=== PATIENT | female | born 1970 | race Caucasian/White ===

== ENCOUNTER 2018-05-02 11:04 | Outpatient (REF) | payer MEDICAID, SELFPAY ==
[2018-05-05 14:37] LABS: Chlamydia Result Negative; GC Result Negative; Specimen Description CERVIX
== END 2018-05-02 11:24 ==
LOC: LBN 11:04
PROVIDERS: PCP Internal Medicine; Visit Provider Obstetrics & Gynecology Gynecology
DX: R10.2 Pelvic and perineal pain (principal); Z11.3 Encounter for screening for infections with a predominantly sexual mode of transmission
CPT/HCPCS: 87491; 87591

== ENCOUNTER 2018-05-29 14:09 | Outpatient (REF) | payer MEDICAID, SELFPAY ==
--- NOTE | 2018-05-29 13:40 | PAPFT_PTH ---
PATIENT: Any Madsen LOC: [facility] U#:[id number] AGE/SX: 47/F ROOM: RE05/29/[address]: Qian Lopez NP : 1970 BED: DIS: 05/29/2018 SPEC #: [id number] RECD: 05/29/18 18:12 STATUS: SUDEEP RODRIGUEZ #: [id number] JON: 05/29/18 13:[address]: Qian Lopez NP DEPT: [facility] Cytology RECD BY: Thania Chavira ENTERED: 05/29/18 18:12 SP TYPE: PAPFT OTHR DR: Moise Cabrales Tissues: 1 - CX/ENDOCX FOR PAP SMEARS Procedures: PAP THIN PREP/UVM Screening HPV DNA PROBE Comments: [id number]
== END 2018-05-29 14:29 ==
LOC: LBN 14:09
PROVIDERS: PCP Internal Medicine; Visit Provider Nurse Practitioner Women's Health
DX: Z12.4 Encounter for screening for malignant neoplasm of cervix (principal); Z11.51 Encounter for screening for human papillomavirus (HPV)
CPT/HCPCS: 88142; 87624

== ENCOUNTER 2021-02-01 00:17 | Outpatient (CLI) | payer MEDICAID, SELFPAY ==
--- NOTE | 2021-02-01 12:15 | DI.MAMMO_ITS ---
Exam(s) MAMMO SCREENING EXAM: MAMMO SCREENING CLINICAL HISTORY: screening. TECHNIQUE: Bilateral full field digital CC and MLO mammographic images were obtained with 3D tomosyn thesis and utilizing computer aided detection (CAD). COMPARISON: None. This is a baseline mammogram on this 50 patient FINDINGS: Fibroglandular tissue pattern is dense bilaterally this somewhat decreasing the sensitivity of the ma mmogram for finding hidden underlying lesions. There are no obvious spiculated masses. Numerous punctate microcalcifications sys are noted both joe asts. No obvious malignant-appearing microcalcification groups. There is no significant architectural distortion nor skin thickening-retraction. IMPRESSION: Dense bilateral fibroglandular tissue. No obvious radiographic evidence of malignancy. BI-RADS Category 2 - Benign Findings Breast Density - Category D - Extremely dense Breast density Category C or D implies that the patient has dense breast tissue. Dense breast tissue can make it harder to find cancer on a mammogram. Dense breast tissue is also associated with an incr eased risk of breast cancer. This information about the result of the mammogram report was provided to the patient to raise their awareness. Use this report when you speak with the patient about their risks for breast cancer, which includes their family history. At that time, you may recommend additional screening tests (Ultrasoun d or MRI) as these tests may add significant information. A negative radiographic report should not delay biopsy if a dominant or clinically suspicious mass is present. Up to ten percent of cancers are not identified on mammography. A negative report may reinforce clinical impression. Adenosis and dense breasts may obscure an underlying neoplasm. False positive reports average 6 to 10%. Patient will receive a letter notifying them of these results.
== END 2021-02-01 00:37 ==
PROVIDERS: PCP Internal Medicine; Visit Provider Obstetrics & Gynecology Gynecology
DX: Z12.31 Encounter for screening mammogram for malignant neoplasm of breast (principal); R92.8 Other abnormal and inconclusive findings on diagnostic imaging of breast
CPT/HCPCS: 77063; 77067

== ENCOUNTER 2023-06-18 11:15 | Outpatient (REF) | payer MEDICAID, SELFPAY ==
--- NOTE | 2023-06-18 10:45 | PAPFT_PTH ---
PATIENT: Any Madsen LOC: [facility] U#:[id number] AGE/SX: 52/F ROOM: RE06/18/[address]: Damaris Burger : 1970 BED: DIS: 06/18/2023 SPEC #: [id number] RECD: 06/18/23 12:54 STATUS: SUDEEP RERishi #: [id number] JON: 06/18/23 10:[address]: Damaris Burger DEPT: [facility] Cytology RECD BY: Thania Chavira ENTERED: 06/18/23 12:54 SP TYPE: PAPFT OTHR DR: Moise Cabrales Tissues: 1 - CX/ENDOCX FOR PAP SMEARS Procedures: PAP THIN PREP/UVM Screening HPV DNA PROBE Comments: [id number]
== END 2023-06-18 11:16 | disposition home or self-care (01) ==
LOC: LBN 11:15
PROVIDERS: PCP Internal Medicine; Visit Provider Obstetrics & Gynecology Gynecology
DX: Z01.419 Encounter for gynecological examination (general) (routine) without abnormal findings (principal); Z11.51 Encounter for screening for human papillomavirus (HPV)
CPT/HCPCS: 88142; 87624

== ENCOUNTER → 2023-06-25 02:57 | Outpatient (CLI) | payer MEDICAID, SELFPAY ==
--- NOTE | 2023-06-25 07:53 | DI.MAMMO_ITS ---
Exam(s) MAMMO SCREENING EXAM: MAMMO SCREENING CLINICAL HISTORY: screening TECHNIQUE: Bilateral full field digital CC and MLO mammographic images were obtained with 3D tomosyn thesis and utilizing computer aided detection (CAD). COMPARISON: Available for comparison. FINDINGS: Masses/Architectural Distortion: None seen. Microcalcifications: No suspicious pleomorphic-type are seen. Skin Thickening/Nipple Retraction: None. IMPRESSION: 1. No significant interval change with no specific features of malignancy noted. 2. Unless there is more urgent need, screening mammography is recommended, as per [employer] guidelines. BI-RADS Category 1 - Negative Breast Density - Category D - Extremely dense Breast density category C or D implies that the patient has dense breast tissue. Dense breast tissue is very common and is not abnormal but dense breast tissue can make it harder to find cancer on a ma mmogram. Also, dense breast tissue may increase their breast cancer risk. This information about the result of the mammogram report was provided to the patient to raise their awareness. Use this report when you speak with the patient about their risks for breast cancer, which includes their family hist ory. At that time, you may recommend for more screening tests (Ultrasound or MRI) as they might be us eful based on their risk. A negative radiographic report should not delay biopsy if a dominant or clinically suspicious mass is present. Up to ten percent of cancers are not identified on mammography. A negative report may reinforce clinical impression. Adenosis and dense breasts may obscure an underlying neoplasm. False positive reports average 6 to 10%. Patient will receive a letter notifying them of these results.
== END ==
PROVIDERS: PCP Internal Medicine; Visit Provider Obstetrics & Gynecology Gynecology
DX: Z12.31 Encounter for screening mammogram for malignant neoplasm of breast (principal)
CPT/HCPCS: 77063; 77067

== ENCOUNTER 2023-08-20 09:53 | Day surgery (SDC) | payer MEDICAID, SELFPAY ==
--- NOTE | 2023-08-20 06:38 | W.ANESPRE ---
General Info Date of Service Date Performed: 08/20/23 Height: 5 ft 4.5 in Weight: 54 kg Body Mass Index (BMI): 20.1 Surgical Procedure: Operation Date: 08/20/23 10:35 Proposed Procedure Side Surgeon p Colonoscopy/Gastroscopy and Hemorrhoid Banding Deven Aldana MD Meds Allergies and Home Medications Allergies Allergy/AdvReac Type Severity Reaction Status Date / Time No Known Allergies Allergy Unverified 08/20/23 10:32 Home Medication Medication Instructions Recorded ibuprofen 200 mg capsule 200 mg PO TID-QID PRN 05/02/18 levonorgestrel 21 mcg/24 hr (up to 1 device intrauterine ONCE 05/29/18 8 years) 52 mg intrauterine device (Mirena) bisacodyl 5 mg tablet,delayed 5 mg PO ONCE #4 tabs 08/08/23 release (Dulcolax (bisacodyl)) polyethylene glycol 3350 17 17 g PO ONCE #238 grams 08/08/23 gram/dose oral powder Current Visit Medications: Current Medications Generic Name Dose Route Start Last Admin Trade Name Jaunq PRN Reason Stop Dose Admin Ringer's Solution 1,000 mls @ 80 mls/hr 08/20/23 06:00 IV 09/18/23 23:59 INFUSION MELINDA IV Miscellaneous Supplies 1 each 08/20/23 06:00 Iv Access IV 09/18/23 23:59 DIRECTED MELINDA Sodium Chloride 0 ml 08/20/23 06:00 Normal Saline Flush 10 Ml Syr IV 09/18/23 23:59 PRN PRN Sodium Chloride 0 ml 08/20/23 06:00 Normal Saline 10 Ml Vial IJ 09/18/23 23:59 DIRECTED PRN Sterile Water 0 ml 08/20/23 06:00 Water,Injection,Sterile 10 Ml Vial IJ 09/18/23 23:59 DIRECTED PRN PFSH Active Problems Active Problems: Problem Status Onset Code Rectal bleeding K62.5 IUD (intrauterine device) in place 05/13/15 Z97.5 Cardiac arrhythmia, unspecified 05/13/15 I49.9 Menstrual irregularity 05/13/15 N92.6 Migraine without aura and without status migrainosus, not intractable 05/13/15 G43.009 Pelvic pain ~04/2018 R10.2 Medical History Medical History Cardiac arrhythmia onset 2014. s/p eval by PCP. not resolved. Migraine Tobacco Smoking/Tobacco Use Status: Never Alcohol Alcohol Intake: current Alcohol intake frequency: a few times a week Substance Use Substance use: Never Substance use type: does not use Prental History History 3 Para Hx # Term Pregnancies 3 Multiple births Hx # Pregnancies Ectopic pregnancies AB induced Hx Number of Living Children AB spontaneous Vital Signs and Lab Results Vital Signs Most Recent Vital Signs in EMR: Temp Pulse Resp BP Pulse Ox 37.1 C 81 16 119/86 98 08/20/23 10:38 08/20/23 10:38 08/20/23 10:38 08/20/23 10:38 08/20/23 10:38 Lab Results Blood Type / Crossmatch: No Data to Display Complete Blood Count: No Data to Display Complete Metabolic Panel: No Data to Display Liver Function Panel: No Data to Display Coagulation Panel: No Data to Display Cardiac Panel: No Data to Display Arterial Blood Gas: No Data to Display Venous Blood Gas: No Data to Display Pancreas Panel: No Data to Display Thyroid Panel: No Data to Display Infectious Disease: No Data to Display Blood Cultures: No Data to Display Toxicology Panel: No Data to Display Panel: No Data to Display Anesthesia Assessment and Plan Anesthesia History Personal History: No History of Anesthesia Complications Family History: No Family History of Anesthesia Complications Exercise Tolerance Exercise Tolerance: Metabolic Equivalents>4 Cardiac & Pulmonary Exam Cardiac Exam: Normal S1/S2 Heart Sounds Pulmonary Exam: Clear Bilateral Breath Sounds Implantable Cardiac Device Does patient have a Pacemaker or an ICD?: No Airway Exam Known Difficult Airway: No Mallampati Class: 3 Mouth Opening: Normal (> 3cm) Thyromental Distance: Greater than 3 cm Neck Range of Motion: Full ROM Neck Circumference: Normal Teeth Condition: Normal Dentition ASA Classification ASA Score: ASA 2 Emergency Case?: No NPO Status NPO Status: NPO Clears >2 hours, Solids >8 hours Status Status: Negative HCG Anesthesia Plan Resuscitation Status: Full Code Anesthesia Technique: General Anesthesia Airway Planned: Natural Airway Monitors Used: Standard Monitors Preoperative Comments:: 52 yo female for colo. Sig PMHx: arrhythmia (? Anxiety), migraine. never smoker, occ EtOH.
[2023-08-20 10:38] VITALS: BP 119/86; PULSE 81; RESP 16; TEMP 37.1; O2SAT 98
[2023-08-20] MEDS: Lactated Ringers 1,000 ML 80 ML IV (10:58)
[2023-08-20 11:37] VITALS: BMI 20.1
--- NOTE | 2023-08-20 11:52 | BOWEL_PTH ---
PATIENT: Any Madsen LOC: [facility] U#:[id number] AGE/SX: 52/F ROOM: RE08/20/[address]: Deven Aldana : 1970 BED: DIS: 08/20/2023 SPEC #: [id number] RECD: 08/20/23 18:01 STATUS: SUDEEP [facility] #: [id number] JON: 08/20/23 11:[address]: Deven Aldana DEPT: Surgical Specimen RECD BY: Thania Chavira ENTERED: 08/20/23 18:04 SP TYPE: Bowel OTHR DR: Moise Cabrales Tissues: 1 - BIOPSY BOWEL 2 - STOMACH BIOPSY 3 - STOMACH BIOPSY 4 - STOMACH BIOPSY 5 - BIOPSY BOWEL 6 - BIOPSY BOWEL Procedures: GROSS AND MICRO LEVEL 4 Comments: [id number]
--- NOTE | 2023-08-20 12:36 | W.PM.ENDDOP ---
Date of service: 08/20/23 Time of Service: 12:36 Endoscopy Report PROCEDURE DESCRIPTION: PROCEDURES PERFORMED: 1. EGD with biopsies 2. Cold forceps polypectomy PREOPERATIVE DIAGNOSIS: GI bleeding, diarrhea POSTOPERATIVE DIAGNOSIS: Normal foregut, incidental fundic polyps SURGEON: Alber Aldana MD INDICATION FOR PROCEDURE: 52-year-old woman has noticed some painless rectal bleeding. She also has been having some diarrhea and bowel habit changes. FINDINGS: D2/D3 = normal -multiple biopsies were taken (x 4) to rule out celiac disease D1/bulb = normal - no ulcers or inflammation Pylorus = normal Antrum = normal appearance, no ulcers, cold forceps biopsies were taken to rule out H. pylori routinely Body = normal appearance, biopsies taken with cold forceps technique routinely. Fundus = normal, there were 3 benign?appearing fundic gland polyps and one was removed to confirm benign histology Hiatus = no obvious hiatal hernia. A very small (subcentimeter) type I sliding hernia may be present, but if it is, it is subtle and essentially meaningless. Distal esophagus = no inflammation, no esophagitis, no Green's, no stricture. I did not take biopsies because it appeared normal and she has no symptoms to suggest esophagus problems. Mid esophagus = normal Proximal esophagus/hypopharynx/vocal cords = normal SURVEILLANCE-INTERVAL/FOLLOW-UP: Overall, a normal foregut macroscopically. Biopsies will probably be normal/benign. Specimens: Yes EBL: Minimal COMPLICATIONS: None Procedure in detail: The patient gave written consent and was in agreement with the indications, the potential risks as well as the benefits of the procedure. The patient was taken to the endoscopy suite and laid on their left side. Anesthesia was given which was tolerated well. We performed a timeout and we are in agreement I started the procedure. A well-lubricated endoscope was gently and carefully advanced down the esophagus, into the stomach the scope was and through the pylorus into the duodenum. The scope was then slowly withdrawn with the above-noted findings/interventions. The patient tolerated the procedure well and was then turned for colonoscopy (see separate procedure note).
[2023-08-20 12:41] VITALS: BP 128/90; PULSE 68; RESP 16; TEMP 36.4; O2SAT 99
--- NOTE | 2023-08-20 12:44 | W.COLOREPORT ---
Date of service: 08/20/23 Time of Service: 12:44 Colonoscopy Report Procedure Description: Procedures performed: 1. Colonoscopy with cold forceps biopsies Preoperative diagnosis: Screening colonoscopy, diarrhea Postoperative diagnosis: Grade 2 internal hemorrhoids, normal colon, normal terminal ileum Surgeon: Alber Aldana MD Indication for procedure: The patient is a 52-year-old woman who is healthy and due for screening colonoscopy. Over the last year or so she has developed on and off loose stools/diarrhea. She also has on and off bleeding from her hemorrhoids(which is probably secondary to the chronic diarrhea). Findings: Normal terminal ileum. Biopsies taken x 4. Grossly normal colon - though it was very redundant throughout. Random biopsies taken of the colonic mucosa to rule out microscopic colitis (not suspected). There were no polyps found. There is no diverticular disease. There is mild-moderate hemorrhoid disease present internal. 1 column has grade 2 internal hemorrhoids while the other 2 columns are grade 1. There is also moderate external hemorrhoid disease. Surveillance interval/follow-up: Pending pathology results of the biopsies(presumably will be normal). 10-year repeat colonoscopy. Hemorrhoid disease is likely secondary to chronic loose stools. Specimens: yes Estimated blood loss: Minimal Complications: None Quality of prep: Excellent Procedure in detail: The patient gave written consent and was in agreement with the indications, the potential risks as well as the benefits of the procedure. She was turned from upper endoscopy (see separate procedure note) and kept in the same position and anesthesia was continued and I started the colonoscopy portion of the procedure. Digital rectal and visual examination was performed and moderate external hemorrhoid disease is visible. Gentle, lubricated digital exam actually resulted in some bleeding from internal. A well-lubricated flexible colonoscope was then introduced and passed without any notable difficulty all the way to the cecum identified by the ileocecal valve and the appendiceal orifice. The terminal ileum was deeply intubated and looked normal visually. The scope was then slowly withdrawn with the above-noted findings. The patient tolerated the procedure well and we then performed hemorrhoid banding (see separate procedure note).
--- NOTE | 2023-08-20 12:49 | W.PM.OP ---
Date of service: 08/20/23 Time of Service: 12:50 Operative Note Operative Note Refer to Anesthesia Record Procedure Description: PROCEDURES PERFORMED: 1. Anoscopy 2. Internal hemorrhoid banding x4 PREOPERATIVE DIAGNOSIS: Symptomatic grade 2 internal hemorrhoids external hemorrhoids, POSTOPERATIVE DIAGNOSIS: Same SURGEON: Alber Aldana MD INDICATION FOR PROCEDURE: The patient is a 52-year-old woman who just had a colonoscopy for painless rectal bleeding and grade 2 internal hemorrhoid disease was found. She had requested possible banding be performed. FINDINGS: Moderate external hemorrhoid disease, normal anal canal, grade 2 internal hemorrhoids present in the right anterior column, grade 1 internal disease at the other 2 columns. Banding performed x 4. SURVEILLANCE interval/FOLLOW-UP: As needed SPECIMENS: None EBL: Minimal COMPLICATIONS: None Procedure in detail: The patient gave written consent and was in agreement with the indications, the potential risks as well as the benefits of the procedure. The colonoscope was removed (see separate procedure note) and I started the banding/anoscopy portion of the procedure. A well?lubricated anoscope was gently introduced. The anal canal was carefully inspected and appeared normal. Internal hemorrhoid disease was readily visible at all 3 columns. Banding was performed in usual fashion. Grade 2 disease required 2 bands to control the column. The patient tolerated the procedure well and was taken to the PACU in hemodynamically stable condition.
--- NOTE | 2023-08-20 12:55 | W.PM.DSUDISC ---
Date of service: 08/20/23 Time of Service: 12:55 Discharge Plan Disposition Patient Disposition: Home Condition: Good Discharge Details Attending Provider: Deven Aldana Primary Care Provider: Moise Cabrales Home Meds and New Rx's Prescriptions: No Action ibuprofen 200 mg capsule 200 mg PO TID-QID PRN Mirena 20 mcg/24 hours (5 yrs) 52 mg intrauterine device 1 device IY ONCE bisacodyl [Dulcolax (bisacodyl)] 5 mg tablet,delayed release (DR/EC) 5 mg PO ONCE Qty: 4 0RF Rx Instructions: Take per colonoscopy instructions provided by ordering providers office polyethylene glycol 3350 17 gram/dose powder 17 g PO ONCE Qty: 238 0RF Rx Instructions: Take per colonoscopy instructions provided by ordering providers office Discharge Instructions Additional Instructions: FINDINGS: On upper endoscopy, everything looks healthy and normal. Some benign?appearing polyps were incidentally noted, these are very common, they are of benign and they are nothing to worry about. As promised, I took biopsies despite everything looking normal in case there is microscopic disease present. You will get called with those results in a week or so. On the colonoscopy, everything also appeared completely normal. There is no inflammation. There is no polyps found. No disease processes. You should repeat another colonoscopy in 10 years. Again, as promised, I took biopsies throughout your colon and your small intestine. My suspicion is that these biopsies will likely come back as normal and if this is the case, then your loose stools/diarrhea are related to medication/hormone side effects. As I mentioned at the time of your consultation, the loose stools are probably causing the hemorrhoid issues.(See below) I did find significant internal and external hemorrhoid disease. We cannot do anything about the external hemorrhoid disease other than surgical excision which is very painful. Thankfully, most of the time, banding internal hemorrhoids is very effective at taking care of the external hemorrhoid disease as well. I was able to band the internal disease and this probably will make you feel little bit uncomfortable and tight or may be a sensation of fullness in the anal area. That sensation and feeling will go away over the next day or 2. Activity:: Activity as Tolerated Diet:: As Tolerated
--- NOTE | 2023-08-20 12:59 | W.ANESPOSTOP ---
Postoperative Evaluation Date, Time and Location Date Performed: 08/20/23 Time Performed: 12:59 Patient Location: Day Surgery Unit Vital Signs Most Recent Imported Vital Signs: Most Recent Vital Signs Temp Pulse Resp BP Pulse Ox 36.4 C L 68 16 128/90 99 08/20/23 12:41 08/20/23 12:41 08/20/23 12:41 08/20/23 12:41 08/20/23 12:41 Pain Score Most Recent Pain Score: Most Recent Pain Score Pain Level 2 08/20/23 12:41 Assessment Mental Status: Awake (Alert & Oriented to Patient Baseline) Airway and Respiratory Function: Patent airway with normal (patient baseline) respiratory exam Cardiovascular Function: Hemodynamically Stable Hydration Status: Adequately Hydrated Nausea & Vomiting: No Nausea or Vomiting Pain: Pain is tolerable per patient Peripheral Nerve Block: Patient did not receive a nerve block
[2023-08-20 13:14] VITALS: BP 122/82; PULSE 60; RESP 16; TEMP 36.6; O2SAT 100
== END 2023-08-20 13:25 | disposition home or self-care (01) ==
PROVIDERS: PCP Internal Medicine; Visit Provider Student in an Organized Health Care Education/Training Program
PROC: (CPT 45398; principal; 2023-08-20 10:30)
DX: Z12.11 Encounter for screening for malignant neoplasm of colon (principal); R19.7 Diarrhea, unspecified; K31.7 Polyp of stomach and duodenum; K92.2 Gastrointestinal hemorrhage, unspecified; K64.1 Second degree hemorrhoids; K63.89 Other specified diseases of intestine
CPT/HCPCS: 45398; 43239; 00123; 88305; J1885; J2405; J2704

== ENCOUNTER 2024-10-22 11:17 | Outpatient (CLI) | payer MEDICAID, SELFPAY ==
--- NOTE | 2024-10-22 08:00 | DI.MAMMO_ITS ---
Exam(s) MAMMO SCREENING EXAM: MAMMO SCREENING CLINICAL HISTORY: screening TECHNIQUE: Mammograms were interpreted according to the usual protocol including computer analysis with CAD system, tomosynthesis and C-view imaging. COMPARISON: 2020 and 2019 FINDINGS: The breasts are composed of heterogeneously dense fibroglandular densities, Breast Density category C. No suspicious masses or suspicious microcalcifications are seen. No skin thickening or abnormal axillary lymph nodes are seen. There has been no significant change from prior exams. IMPRESSION: BI-RADS Category 1, Negative mammogram. Yearly screening mammography is recommended. Breast Density: Category C - The breasts are heterogeneously dense, which may obscure small masses. Breast density Category C or D implies that the patient has dense breast tissue. Dense breast tissue can make it harder to find cancer on a mammogram. Dense breast tissue is also associated with an increased risk of breast cancer. This information about the result of the mammogram report was provided to the patient to raise their awareness. Use this report when you speak with the patient about their risks for breast cancer, which includes their family history. At that time, you may recommend additional screening tests (Ultrasound or MRI) as these tests may add significant information. A negative radiographic report should not delay biopsy if a dominant or clinically suspicious mass is present. Up to ten percent of cancers are not identified on mammography. A negative report may reinforce clinical impression. Adenosis and dense breasts may obscure an underlying neoplasm. False positive reports average 6 to 10%.
== END 2024-10-22 11:37 ==
LOC: DI 11:18
PROVIDERS: PCP Internal Medicine; Visit Provider Obstetrics & Gynecology
DX: Z12.31 Encounter for screening mammogram for malignant neoplasm of breast (principal); R92.333 Mammographic heterogeneous density, bilateral breasts; R92.323 Mammographic fibroglandular density, bilateral breasts
CPT/HCPCS: 77063; 77067